=== PATIENT | male | born 1980 | race Caucasian/White ===

== ENCOUNTER 2016-07-26 11:35 | Emergency (ER) ==
[2016-07-26 11:43] VITALS: BP 117/83; TEMP 97.2; BMI 30.7
--- NOTE | 2016-07-26 11:56 | ED.PDOC ---
General ED Provider: Dr. BIANCA CHRIS JR Chief Complaint: Fever Stated Complaint: Fever 2 days ago. SOA, cough. States is blood-tinged. Pain rt chest. Worse with breathing. No fever now. Took ibuprofen. Robitussin last noc. [place] congestion, no decongestant taken.[End] 97.2 116 20 04% 117/83 03/01 Time Seen by Physician: 11:53 Mode of Arrival: Walk-In Information Source: Patient Exam Limitations: No limitations Primary Care Provider: ASPEN MARSHALL Nursing and Triage Documentation Reviewed and Agree: No Review of Systems - Review Of Systems Constitutional: Reports: Chills, Fever, Malaise Eyes: Reports: No symptoms Ears, Nose, Mouth, Throat: Reports: No symptoms Respiratory: Reports: Cough Cardiac: Reports: Chest pain (right pleuitic) GI: Reports: No symptoms : Reports: No symptoms Musculoskeletal: Reports: No symptoms Skin: Reports: No symptoms Neurological: Reports: No symptoms Endocrine: Reports: No symptoms Hematologic/Lymphatic: Reports: No symptoms All Other Systems: Other Past Medical History - Past Medical History Previously Healthy: Yes Endocrine: Reports: None Cardiovascular: Reports: None Respiratory: Reports: None Hematological: Reports: None Gastrointestinal: Reports: None Genitourinary: Reports: None Neuro/Psych: Reports: None Musculoskeletal: Reports: None Cancer: Reports: None - Surgical History General Surgical History: Reports: Appendectomy - Family History Family History: Reports: Unknown - Social History Smoking Status: Current every day smoker, Heavy tobacco smoker Hx Substance Use: No Alcohol Screening: None Physical Exam - Physical Exam Appearance: Ill-appearing Ill-appearing: Moderate Pain Distress: Moderate Eyes: NIRMAL, EOMI, Conjunctiva clear ENT: Ears normal Neck: Supple Respiratory: Airway patent, Crackles (right anterior) Cardiovascular: RRR, Pulses normal, No rub, No murmur GI/: Soft, Nontender, No masses, Bowel sounds normal, No Organomegaly Musculoskeletal: Normal strength, ROM intact, No edema, No calf tenderness Skin: Warm, Dry, Normal color Neurological: Sensation intact, Motor intact, Reflexes intact, Cranial nerves intact, Alert, Oriented Psychiatric: Affect appropriate, Mood appropriate Critical Care Note - Critical Care Note Total Time (mins): 0 Course - Course Orders, Labs, Meds: Orders Category Date Time Status SPUTUM CULTURE Stat LAB 07/26/16 11:58 Uncollected CHEST, 2 VIEWS PA & LAT Stat RADS 07/26/16 11:52 Completed Vital Signs: Temp Pulse Resp BP Pulse Ox 07/26/16 11:36 97.2 F L 116 H 20 117/83 94 L Departure - Departure Time of Disposition: 12:39 Disposition: HOME SELF-CARE Discharge Problem: Pneumonia Qualifiers: Pneumonia type: due to unspecified organism Laterality: right Lung location: lower lobe of lung Qualifier Code: (J18.1) Lobar pneumonia, unspecified organism Instructions: Pneumonia (ED) Condition: Stable Pt referred to PMD for follow-up: Yes Additional Instructions: call PMD tomorrow report condition antibiotic until gone return if fever over 101.0, if shortness of breath , if worsening Augmentin antibiotic until gone may use tussionex for cough may use [place] for pain (not with tussionex) may use combivent for breathing recommend stop smoking Prescriptions: Hydrocodone Bit/Acetaminophen [[place] 5-325] 1 - 2 tab PO Q6HR PRN #12 tablet PRN Reason: pain Amoxicillin/Potassium Clav [Augmentin 875-125 mg Tab] 1 tab PO BIDWM #14 tablet Hydrocodone/Chlorphen Polis [Tussionex] 5 ml PO Q12H PRN #120 ml PRN Reason: Cough Ipratropium/Albuterol Sulfate [Combivent Respimat Inhal [place]] 1 spray IH BID PRN #1 aero PRN Reason: Wheezing Allergies/Adverse Reactions: Allergies codeine Adverse Reaction (Verified 07/26/16 11:45) Home Medications: Ambulatory Orders Amoxicillin/Potassium Clav [Augmentin 875-125 mg Tab] 1 tab PO BIDWM #14 tablet 07/26/16 Hydrocodone Bit/Acetaminophen [[place] 5-325] 1 - 2 tab PO Q6HR PRN #12 tablet 11/06 Hydrocodone/Chlorphen Polis [Tussionex] 5 ml PO Q12H PRN #120 ml 07/26/16 Ipratropium/Albuterol Sulfate [Combivent Respimat Inhal [place]] 1 spray IH BID PRN #1 aero 07/26/16
--- NOTE | 2016-07-26 12:24 | DI ---
EXAM: CHEST FRONTAL AND LATERAL VIEWS HISTORY: Cough, hemoptysis. COMPARISON: None FINDINGS: Heart size is normal. There is a moderate amount of density in the posterior right lung base. Lungs are otherwise clear. Normal vascularity. No visible pleural fluid. IMPRESSION: Moderate amount of density over the right lung base which in a patient of this age would be most con sistent with pneumonia and unlikely to represent tumor. Atelectasis would be another consideration. Correlate clinically. Follow-up radiography is recommended.
== END 2016-07-26 13:00 | disposition home or self-care (01) ==
LOC: ED 11:35
DX: J18.1 Lobar pneumonia, unspecified organism (principal); F17.210 Nicotine dependence, cigarettes, uncomplicated
CPT/HCPCS: 87070; 99283

== ENCOUNTER 2016-07-30 20:02 | Inpatient (IN) ==
[2016-07-30] MEDS ORDERED: SODIUM CHLORIDE 1,000 ML IV STA (20:19)
[2016-07-30] MEDS ORDERED: DUONEB NEB STA (20:20)
[2016-07-30] MEDS ORDERED: ZOSYN 3.375 GM 3.375 GM in SODIUM CHLORIDE 100 ML IV STA (20:20)
[2016-07-30] MEDS ORDERED: TORADOL IVP STA (20:21)
[2016-07-30 20:40] LABS: BASOPHILS # (AUTO) 0.2 K/uL (0-0.2); BASOPHILS % (AUTO) 0.8 % (0.0-3.0); EOSINOPHILS # (AUTO) 0.2 K/ul (0.0-0.7); EOSINOPHILS % (AUTO) 0.7 % (0.0-7.0); HEMOGLOBIN 15.2 g/dl (14.0-18.0); IMMATURE GRANULOCYTE % (AUTO) 6.1 % (0.0-5.0); LYMPHOCYTES # (AUTO) 3.1 K/uL (0.60-3.4); LYMPHOCYTES % (AUTO) 13.6 (10.0-50.0); MEAN CORPUSCULAR HEMOGLOBIN 30.1 pg (27.0-31.0); MEAN CORPUSCULAR HGB CONC 35.3 (31.8-35.4); MEAN CORPUSCULAR VOLUME 85.1 fl (80.0-94.0); MONOCYTES # (AUTO) 2.3 K/uL (0.4-2.0); MONOCYTES % (AUTO) 10.4 (0-10); NEUTROPHILS # (AUTO) 15.5 K/ul (2.0-6.9); NEUTROPHILS % (AUTO) 68.4; PLATELET COUNT 350 10^3/uL (140-440); RED BLOOD COUNT 5.05 10^6/ul (4.70-6.10); WHITE BLOOD COUNT 22.59 K/ul (4.2-10.2)
--- NOTE | 2016-07-30 20:46 | CT ---
EXAM: CT scan thorax without contrast HISTORY: Cough COMPARISON: None. FINDINGS: Contiguous axial images obtained from thoracic inlet through hemidiaphragms without contr ast utilizing 5-mm collimation. Sagittal and coronal reconstructions were imaged and reviewed.. Th e thoracic inlet is unremarkable. There are subcentimeter pretracheal lymph nodes. Evaluation of h ilar structures is limited without contrast. The heart is normal in size with tiny pericardial effu pj measuring 9 mm.. There is mixed alveolar and interstitial infiltrate involving the entirety of the right lower lobe. There is no evidence of a pleural effusion. The left lung is clear. There are no lytic or blastic lesions. Adrenal glands are unremarkable. IMPRESSION: Large right lower lobe infiltrate compatible with pneumonia. Left lung is clear. Tiny pericardial effusion.
[2016-07-30 20:57] LABS: FLU INTERNAL QC INTERNAL QC VALID; RAPID FLU A NEGATIVE (NEGATIVE); RAPID FLU B NEGATIVE (NEGATIVE)
[2016-07-30 21:06] LABS: ALBUMIN 2.9 g/dL (3.4-5.0); ALBUMIN/GLOBULIN RATIO 0.66; BILIRUBIN,TOTAL 0.6 mg/dL (0.00-1.20); BUN/CREATININE RATIO 10.81; CALCIUM 9.6 mg/dL (8.2-10.2); CREATININE 0.74 mg/dL (0.60-1.10); TOTAL PROTEIN 7.3 g/dL (6.4-8.2)
[2016-07-30 21:06] LABS: ABG BASE EXCESS 1 (-2.0-2.0); ABG HCO3 24.9 (22.0-26.0); ABG PH 7.436 (7.35-7.45); ABG TCO2 26 (22.0-28.0)
--- NOTE | 2016-07-30 21:18 | ED.PDOC ---
General ED Provider: Dr. ASPEN MARSHALL-ER Chief Complaint: Respiratory Complaint Stated Complaint: i have pneumonia--im not getting better Time Seen by Physician: 20:15 Mode of Arrival: Walk-In Information Source: Patient Exam Limitations: No limitations Nursing and Triage Documentation Reviewed and Agree: Yes Respiratory Complaint Exam - Respiratory Complaint/Exam Onset/Duration: 2 days Symptoms Are: Still present Timing: Intermittent Initial Severity: Mild Current Severity: Moderate Location: Chest Character: Reports: Productive cough Aggravating: Reports: URI, Passive smoke exposure Alleviating: Reports: None Associated Signs and Symptoms: Reports: Dyspnea, Fever, Chills, URI, Nasal congestion. Denies: Rapid breathing, Chest pain, Pleuritic chest pain, Wheezing , Hemoptysis, Dizziness, Calf pain, Calf swelling, Edema, Hoarseness, Sinus discomfort, Vomiting, Sore throat, Weight loss, Decreased oral intake, Increased thirst, Increased appetite, Increased urination Related History: Reports: Similar episode History of Healthcare-Acquired Pneumonia: No Related Surgical History: Reports: None Pulmonary Embolism Risk Factors: Smoking Cardiac Risk Factors: Reports: Smoking Tuberculosis Risk Factors: Reports: None Status Asthmaticus Risk Factors: Reports: None Home Oxygen Use: No Recent Stress Test: No Recent Echo/LV Function: No Current Antibiotic Use: Yes Current Asthma Medication Use: No Respiratory Distress: Moderate Inadequate Respiratory Effort: No Dysphagia Present: No Stridor Present: No JVD Present: No Accessory Muscle Use: No Retractions: Not Present Diminished Breath Sounds: No Sinus Tenderness: None Grunting Respirations: No [place] Respirations: No Differential Diagnoses: Pneumonia Non-Traumatic Chest Pain Syncope: EKG Performed Review of Systems - Review Of Systems Constitutional: Reports: Chills, Fever, Weakness Eyes: Reports: No symptoms Ears, Nose, Mouth, Throat: Reports: No symptoms Respiratory: Reports: Cough Cardiac: Reports: No symptoms GI: Reports: No symptoms : Reports: No symptoms Musculoskeletal: Reports: No symptoms Skin: Reports: No symptoms Neurological: Reports: No symptoms Endocrine: Reports: No symptoms Hematologic/Lymphatic: Reports: No symptoms All Other Systems: Reviewed and Negative Past Medical History - Past Medical History Previously Healthy: Yes Endocrine: Reports: None Cardiovascular: Reports: None Respiratory: Reports: None Hematological: Reports: None Gastrointestinal: Reports: None Genitourinary: Reports: None Neuro/Psych: Reports: None Musculoskeletal: Reports: None Cancer: Reports: None - Surgical History General Surgical History: Reports: Appendectomy - Family History Family History: Reports: Unknown - Social History Smoking Status: Current every day smoker, Heavy tobacco smoker Hx Substance Use: No Alcohol Screening: None Lives: With family Physical Exam - Physical Exam Appearance: Well-appearing, No pain distress, Well-nourished Eyes: NIRMAL, EOMI, Conjunctiva clear ENT: Ears normal, Nose normal, Oropharynx normal Neck: Supple Respiratory: Crackles, Rhonchi Cardiovascular: RRR GI/: Soft, Nontender, No masses, Bowel sounds normal, No Organomegaly Musculoskeletal: Normal strength, ROM intact, No edema, No calf tenderness Skin: Warm, Dry, Normal color Neurological: Sensation intact, Motor intact, Reflexes intact, Cranial nerves intact, Alert, Oriented Psychiatric: Affect appropriate, Mood appropriate Interpretation - Radiology Interpretation Radiology Interpretation By: Radiologist Radiology Results: Positive Exam Interpreted: CT Scan - EKG Interpretation Time of EKG #1: 21:18 Rate: Normal Rhythm: Sinus Ectopy: None [place]: NL ST Segment: Normal Physician Notification - Case Discussed Physician Notified: dr hill Time of Notification: 21:18 Critical Care Note - Critical Care Note Total Time (mins): 0 Course - Course Hematology/Chemistry: 07/30/16 20:33 07/30/16 20:33 Orders, Labs, Meds: Lab Review 07/30/16 07/30/16 20:33 20:52 WBC 22.59 H RBC 5.05 Hgb 15.2 Hct 43.0 MCV 85.1 MCH 30.1 MCHC 35.3 RDW Coeff of [place]isabel 13.0 Plt Count 350 Immature Gran % (Auto) 6.1 H Neut % (Auto) 68.4 Lymph % (Auto) 13.6 [place] % (Auto) 10.4 H Eos % (Auto) 0.7 Baso % (Auto) 0.8 Immature Gran # (Auto) 1.4 H Neut # 15.5 H Lymph # 3.1 [place] # 2.3 H Eos # 0.2 Baso # 0.2 D-Dimer 1.32 Puncture Site Lb O2 Saturation 94.0 L ABG pH 7.436 ABG pCO2 37.0 ABG pO2 68.0 L ABG HCO3 24.9 ABG Total CO2 26 ABG Base Excess 1 Steven Test + FiO2 % 21.0 Sodium 139 Potassium 4.0 Chloride 101 Carbon Dioxide 26 Anion Gap 16.0 BUN 8 Creatinine 0.74 Estimated GFR (MDRD) 121.00 BUN/Creatinine Ratio 10.81 Glucose 118 H Calcium 9.6 Total Bilirubin 0.60 AST 35 ALT 44 Alkaline Phosphatase 156 H Total Protein 7.3 Albumin 2.9 L Globulin 4.4 Albumin/Globulin Ratio 0.66 Influenza A (Rapid) Negative Influenza B (Rapid) Negative Orders Category Date Time Status ABG DRAW REQUEST Stat CARDIO 07/30/16 20:53 Completed EKG-(ED ONLY) Stat CARDIO 07/30/16 20:19 Completed NEBULIZER TREATMENT Stat CARDIO 07/30/16 20:21 Completed IV [ED IV/MEDIPORT/POWERPORT] .ONCE EMERGENCY 07/30/16 20:19 Active OXYGEN [ED APPLY O2] .ONCE EMERGENCY 07/30/16 21:09 Active ARTERIAL BLOOD GAS [ABG] Stat LAB 07/30/16 20:52 Completed BLOOD CULTURE Stat LAB 07/30/16 20:33 Received CBC W/ AUTO DIFF Stat LAB 07/30/16 20:33 Completed COMPREHENSIVE METABOLIC PANEL Stat LAB 07/30/16 20:33 Completed CREATINE KINASE Stat LAB 07/30/16 20:33 Received D-DIMER Stat LAB 07/30/16 20:33 Completed RAPID FLU A/B Stat LAB 07/30/16 20:33 Completed TROPONIN I Stat LAB 07/30/16 20:33 Received 0.9 % Sodium Chloride [Saline Flush] MEDS 07/30/16 20:19 Ordered 1 syr IVF PRN PRN Ipratropium/Albuterol Neb [Duoneb] MEDS 07/30/16 20:20 Discontinued 1 vial NEB ONCE STA Ketorolac Tromethamine [Toradol] MEDS 07/30/16 20:21 Discontinued 30 mg IVP ONCE STA Piperacillin Sodium/Tazobactam [Zosyn 3.375 gm] 3.375 MEDS 07/30/16 20:20 Active gm 0.9 % Sodium Chloride [Sodium Chloride] 100 ml IV ONCE Sodium Chloride 0.9% [Sodium Chloride] 1,000 ml MEDS 07/30/16 20:19 Active IV 100 mls/hr CT CHEST W/O CONTRAST Stat RADS 07/30/16 20:20 Completed Medications Generic Name Dose Route Start Last Admin Trade Name Freq PRN Reason Stop Dose Admin Sodium Chloride 1,000 mls @ 100 mls/hr 07/30/16 20:19 07/30/16 21:03 Sodium Chloride IV 07/31/16 06:18 100 mls/hr .Q10H STA Administration Piperacillin Sod/Tazobactam 100 mls @ 100 mls/hr 07/30/16 20:20 07/30/16 21: 03 Sod 3.375 gm/ Sodium Chloride IV 07/30/16 21:19 100 mls/hr ONCE STA Administration Sodium Chloride 1 syr 07/30/16 20:19 07/30/16 21:05 Saline Flush IVF 1 syr PRN PRN Administration To flush IV Discontinued Medications Generic Name Dose Route Start Last Admin Trade Name Freq PRN Reason Stop Dose Admin Albuterol/Ipratropium 1 vial 07/30/16 20:20 07/30/16 20:49 Duoneb NEB 07/30/16 20:21 1 vial ONCE STA Administration Ketorolac Tromethamine 30 mg 07/30/16 20:21 07/30/16 21:01 Toradol IVP 07/30/16 20:22 30 mg ONCE STA Administration Vital Signs: Temp Pulse Resp BP Pulse Ox 07/30/16 20:11 99.0 F 108 H 20 147/97 H 93 L Departure - Departure Time of Disposition: 21:19 Disposition: ADMITTED INPATIENT Discharge Problem: Pneumonia Qualifiers: Pneumonia type: due to unspecified organism Laterality: right Lung location: lower lobe of lung Qualifier Code: (J18.1) Lobar pneumonia, unspecified organism Instructions: Bacterial Pneumonia (ED) Condition: Good Pt referred to PMD for follow-up: Yes Allergies/Adverse Reactions: Allergies codeine Adverse Reaction (Verified 07/30/16 20:14) Home Medications: Ambulatory Orders Amoxicillin/Potassium Clav [Augmentin 875-125 mg Tab] 1 tab PO BIDWM #14 tablet 07/26/16 Hydrocodone Bit/Acetaminophen [[place] 5-325] 1 - 2 tab PO Q6HR PRN #12 tablet 11/06 Hydrocodone/Chlorphen Polis [Tussionex] 5 ml PO Q12H PRN #120 ml 07/26/16 Ipratropium/Albuterol Sulfate [Combivent Respimat Inhal [place]] 1 spray IH BID PRN #1 aero 07/26/16 Disposition Discussed With: Patient
[2016-07-30] MEDS ORDERED: MOTRIN PO PRN (21:22)
[2016-07-30] MEDS ORDERED: TUSSIONEX PO PRN (21:23)
[2016-07-30 21:28] LABS: CREATINE KINASE 39 U/L
[2016-07-30] MEDS: SODIUM CHLORIDE 1,000 ML IV SCH (21:55)
[2016-07-30 22:30] VITALS: BMI 29.5
[2016-07-30] MEDS: DUONEB NEB SCH (23:50)
[2016-07-31] MEDS: ZOSYN 3.375 GM 3.375 GM in SODIUM CHLORIDE 100 ML IV SCH ×5 (00:22→23:40)
[2016-07-31] MEDS: DUONEB NEB SCH ×4 (05:19→23:16)
[2016-07-31 08:05] LABS: BASOPHILS # (AUTO) 0.1 K/uL (0-0.2); BASOPHILS % (AUTO) 0.4 % (0.0-3.0); EOSINOPHILS # (AUTO) 0.2 K/ul (0.0-0.7); EOSINOPHILS % (AUTO) 1.5 % (0.0-7.0); HEMOGLOBIN 13.4 g/dl (14.0-18.0); IMMATURE GRANULOCYTE % (AUTO) 7.1 % (0.0-5.0); LYMPHOCYTES % (AUTO) 19.3 (10.0-50.0); MEAN CORPUSCULAR HGB CONC 34.4 (31.8-35.4); MEAN CORPUSCULAR VOLUME 87.2 fl (80.0-94.0); MONOCYTES # (AUTO) 1.9 K/uL (0.4-2.0); MONOCYTES % (AUTO) 11.8 (0-10); NEUTROPHILS # (AUTO) 9.4 K/ul (2.0-6.9); NEUTROPHILS % (AUTO) 59.9; PLATELET COUNT 296 10^3/uL (140-440); RED BLOOD COUNT 4.47 10^6/ul (4.70-6.10); WHITE BLOOD COUNT 15.73 K/ul (4.2-10.2)
[2016-07-31 08:15] LABS: ALBUMIN 2.4 g/dL (3.4-5.0); ALBUMIN/GLOBULIN RATIO 0.6; ANION GAP 12.7; BILIRUBIN,TOTAL 0.43 mg/dL (0.00-1.20); BUN/CREATININE RATIO 10.12; CALCIUM 8.8 mg/dL (8.2-10.2); CREATININE 0.79 mg/dL (0.60-1.10); POTASSIUM 3.7 mmol/L (3.5-5.1); TOTAL PROTEIN 6.4 g/dL (6.4-8.2)
[2016-07-31] MEDS: LEVAQUIN 750 MG in PREMIX 150 ML D5W 1 BAG IV SCH (08:20)
[2016-07-31] MEDS: LOVENOX SUBCUT SCH (08:21)
[2016-07-31] MEDS: SODIUM CHLORIDE 1,000 ML IV SCH (15:38)
[2016-07-31] MEDS: ATIVAN PO PRN (21:57)
[2016-08-01] MEDS: DUONEB NEB SCH ×4 (05:00→22:48)
[2016-08-01] MEDS: ZOSYN 3.375 GM 3.375 GM in SODIUM CHLORIDE 100 ML IV SCH ×4 (05:34→23:54)
[2016-08-01 07:51] LABS: BASOPHILS # (AUTO) 0.1 K/uL (0-0.2); BASOPHILS % (AUTO) 0.6 % (0.0-3.0); EOSINOPHILS # (AUTO) 0.3 K/ul (0.0-0.7); EOSINOPHILS % (AUTO) 1.6 % (0.0-7.0); HEMATOCRIT 38.8 % (42.0-52.0); HEMOGLOBIN 13.4 g/dl (14.0-18.0); IMMATURE GRANULOCYTE % (AUTO) 8.8 % (0.0-5.0); LYMPHOCYTES # (AUTO) 3.1 K/uL (0.60-3.4); LYMPHOCYTES % (AUTO) 19.7 (10.0-50.0); MEAN CORPUSCULAR HEMOGLOBIN 30.4 pg (27.0-31.0); MEAN CORPUSCULAR HGB CONC 34.5 (31.8-35.4); MONOCYTES # (AUTO) 1.1 K/uL (0.4-2.0); MONOCYTES % (AUTO) 6.8 (0-10); NEUTROPHILS # (AUTO) 9.9 K/ul (2.0-6.9); NEUTROPHILS % (AUTO) 62.5; PLATELET COUNT 324 10^3/uL (140-440); RED BLOOD COUNT 4.41 10^6/ul (4.70-6.10); WHITE BLOOD COUNT 15.87 K/ul (4.2-10.2)
[2016-08-01 08:10] LABS: ALBUMIN 2.4 g/dL (3.4-5.0); ALBUMIN/GLOBULIN RATIO 0.57; ANION GAP 13.2; BILIRUBIN,TOTAL 0.35 mg/dL (0.00-1.20); BUN/CREATININE RATIO 9.09; CALCIUM 9.1 mg/dL (8.2-10.2); CREATININE 0.77 mg/dL (0.60-1.10); POTASSIUM 4.2 mmol/L (3.5-5.1); TOTAL PROTEIN 6.6 g/dL (6.4-8.2)
[2016-08-01] MEDS: LEVAQUIN 750 MG in PREMIX 150 ML D5W 1 BAG IV SCH (09:05)
[2016-08-01] MEDS: LOVENOX SUBCUT SCH (09:11)
[2016-08-01] MEDS: SODIUM CHLORIDE 1,000 ML IV SCH (14:46)
[2016-08-01] MEDS: ATIVAN PO PRN (20:24)
[2016-08-02] MEDS: DUONEB NEB SCH ×4 (04:46→23:46)
[2016-08-02] MEDS: SODIUM CHLORIDE 1,000 ML IV SCH ×2 (05:17→21:25)
[2016-08-02 05:20] LABS: BASOPHILS # (AUTO) 0.1 K/uL (0-0.2); BASOPHILS % (AUTO) 0.3 % (0.0-3.0); EOSINOPHILS # (AUTO) 0.4 K/ul (0.0-0.7); EOSINOPHILS % (AUTO) 1.9 % (0.0-7.0); HEMATOCRIT 39.6 % (42.0-52.0); HEMOGLOBIN 13.4 g/dl (14.0-18.0); IMMATURE GRANULOCYTE % (AUTO) 4.7 % (0.0-5.0); LYMPHOCYTES # (AUTO) 3.7 K/uL (0.60-3.4); LYMPHOCYTES % (AUTO) 17.3 (10.0-50.0); MEAN CORPUSCULAR HEMOGLOBIN 29.8 pg (27.0-31.0); MEAN CORPUSCULAR HGB CONC 33.8 (31.8-35.4); MEAN CORPUSCULAR VOLUME 88.2 fl (80.0-94.0); MONOCYTES # (AUTO) 1.1 K/uL (0.4-2.0); MONOCYTES % (AUTO) 5.1 (0-10); NEUTROPHILS # (AUTO) 15.1 K/ul (2.0-6.9); NEUTROPHILS % (AUTO) 70.7; PLATELET COUNT 399 10^3/uL (140-440); RED BLOOD COUNT 4.49 10^6/ul (4.70-6.10)
[2016-08-02] MEDS: ZOSYN 3.375 GM 3.375 GM in SODIUM CHLORIDE 100 ML IV SCH ×4 (05:38→23:37)
[2016-08-02 05:39] LABS: ALBUMIN 2.5 g/dL (3.4-5.0); ALBUMIN/GLOBULIN RATIO 0.63; ANION GAP 12.9; BILIRUBIN,TOTAL 0.33 mg/dL (0.00-1.20); BUN/CREATININE RATIO 9.45; CALCIUM 9.1 mg/dL (8.2-10.2); CREATININE 0.74 mg/dL (0.60-1.10); POTASSIUM 3.9 mmol/L (3.5-5.1); TOTAL PROTEIN 6.5 g/dL (6.4-8.2)
[2016-08-02] MEDS: ROCEPHIN 1 GM in SODIUM CHLORIDE 100 ML IV SCH (10:12)
--- NOTE | 2016-08-02 10:25 | PCM.PROG ---
Attending Provider: ATTENDING PROVIDER: Dr. ROSY CHOW DATE OF SERVICE: 08/02/16 SUBJECTIVE: This 36 year old WHITE/ M was hospitalized 07/30/16. The patient is admitted with pneumonia. He is coughing, which is nonproductive. He has no fever. The patient states his chest hurts when he coughs, probably pleuritic in nature. Will repeat chest x-ray. REVIEW OF SYSTEMS: CONSTITUTIONAL: No fever, no chills. ENDOCRINE: No weight loss or weight gain. HEENT: No sinus drainage, no sore throat. CVS: Chest pain, pleuritic. No angina symptoms. No CHF symptoms. No palpitations. No shortness of breath. RESPIRATORY: Cough and congestion. No hemoptysis. GI: No melena. No abdominal pain. No nausea, no vomiting. : No hematuria. No polyuria. SKIN: No rash. No wounds. MUSCULOSKELETAL: No pain. SERVICE RIG OPERATOR: No blackout, no dizziness. No headache. No double vision. PSYCHIATRIC: Not anxious; no depression. No suicidal thoughts. No homicidal thoughts. PHYSICAL EXAMINATION: GENERAL: Lying in bed in no distress. VITAL SIGNS: Temperature 97.0 F, Pulse 89, Respiratory Rate 18, BP 135/86, Pulse Ox 97% HEENT: Normocephalic, atraumatic. Mucosa is dry, pallor positive. NECK: No JVP, no carotid bruit. No lymphadenopathy. CARDIAC: S1, S2, no S3. No murmur, gallop or regurgitation. LUNGS: Decreased air entry with diffuse basilar crackles on the right. ABDOMEN: Soft, non-tender. Bowel sounds active. No rigidity, guarding or CVA tenderness. EXTREMITIES: No clubbing, cyanosis or edema. NEUROLOGIC: Awake, alert and oriented x3. LYMPHATIC: No palpable lymph nodes SKIN: Not dry. Intact. MUSCULOSKELETAL: No joint swelling. LAB REVIEW: 08/02/16 05:05 08/02/16 05:05 08/02/16 05:05: WBC 21.30 H D, RBC 4.49 L, Hgb 13.4 L, Hct 39.6 L, MCV 88.2, MCH 29.8, MCHC 33.8, RDW Coeff of Marisabel 13.2, Plt Count 399, Immature Gran % (Auto ) 4.7, Neut % (Auto) 70.7, Lymph % (Auto) 17.3, [place] % (Auto) 5.1, Eos % (Auto) 1.9, Baso % (Auto) 0.3, Immature Gran # (Auto) 1.0, Neut # 15.1 H, Lymph # 3.7 H , [place] # 1.1, Eos # 0.4, Baso # 0.1, Sodium 141, Potassium 3.9, Chloride 104, Carbon Dioxide 28, Anion Gap 12.9, BUN 7, Creatinine 0.74, Estimated GFR (MDRD) 121.00, BUN/Creatinine Ratio 9.45, Glucose 108 H, Calcium 9.1, Total Bilirubin 0.33, AST 44 H, ALT 53, Alkaline Phosphatase 142 H, Total Protein 6.5, Albumin 2.5 L, Globulin 4.0, Albumin/Globulin Ratio 0.63 ASSESSMENT: 1. Right lower lobe pneumonia, community acquired. 2. Pleurisy. 3. Leukocytosis secondary to pneumonia. PLAN: 1. Continue Duonebs 2. Discontinue Levaquin 3. Begin Rocephin 1 gm 4. Chest x-ray, repeat Plan and coordination of the patient's care discussed in the presence of Mentally Retarded Teacher and nurse. CONDITION: Stable SCRIBED BY: ASHLY TOM, Accounts Receivable Clerk scribed while in presence of service performed by Dr. ROSY CHOW on 08/02/16 ([id number])
--- NOTE | 2016-08-02 10:57 | DI ---
EXAM: Chest two view, frontal and lateral views. HISTORY: Pneumonia follow-up. Left-sided crackles. COMPARISON: 07/30/2016. FINDINGS: Heart size is normal. No vascular congestion identified. Right lower lobe consolidation is unchanged. Left lung is clear. No pleural effusion or pneumothorax identified. Osseous struct ures are intact. IMPRESSION: Stable right lower lobe pneumonia.
[2016-08-02] MEDS: LOVENOX SUBCUT SCH (11:37)
[2016-08-02] MEDS: LEVAQUIN 750 MG in PREMIX 150 ML D5W 1 BAG IV SCH (11:38)
--- NOTE | 2016-08-02 15:15 | PN ---
DATE OF SERVICE: 07/30/16 SUBJECTIVE: The patient was admitted with the right sided pneumonia. He is feeling some better but still coughing and not able to get any phlegm. No fever. Still has the right sided chest pain when he takes a deep breath. Otherwise no other complaints. REVIEW OF SYSTEMS: CONSTITUTIONAL: No fever, no chills. HEENT: Normal. ENDOCRINE: No weight gain, no weight loss. CVS: No angina symptoms. No CHF symptoms. No palpitations. No atypical chest pain for CAD. No shortness of breath. No PND, no orthopnea. RESPIRATORY: No cough, no hemoptysis. GI: No nausea, no vomiting. No abdominal pain. : No hematuria. No polyuria. MUSCULOSKELETAL:. No joint swelling. PSYCHIATRIC: Not anxious. No depression. No suicidal thoughts. No homicidal thoughts. SKIN: Intact. No rash. PHYSICAL EXAMINATION: V/S: Blood pressure 137/88, respiratory rate 18, heart rate 93, temperature 97.0 and saturation 98% on the 2 liter. HEENT: Normocephalic, atraumatic. Ears, eyes, nose and throat normal. Mucosa dry. Pallor positive. No icterus. NECK: Supple. No JVD, no carotid bruit. No lymphadenopathy. LUNGS: Right sided lung entry is decreased and crackles defused but present. No rales or rhonchi. HEART: S1, S2 normal. No S3. No murmur, gallop or regurgitation. ABDOMEN: Soft, nontender. Bowel sounds active. No rigidity. No rebound or guarding. No CVA tenderness. EXTREMITIES: No clubbing, cyanosis or pedal edema. MUSCULOSKELETAL: No joint swelling. NEUROLOGIC: Awake, alert, oriented times three. No focal deficit. LYMPHATIC: No lymph nodes palpable. SKIN: Intact. LABS: WBC 15.87, hgb 13.4, hct 38.8, plt count 324, sodium 142, potassium 4.2, chloride 105, bicarb 28, BUN 7 and creatinine 0.77. ASSESSMENT: 1. Right sided acute community acquired pneumonia 2. Pleurisy 3. Anemia probably hemodilution 4. Leukocytosis PLAN: 1. Continue Levaquin, Piperacillin and DUO NEBS 2. Lovenox for the DVT prophylaxis 3. Hydrocodone for the pain 4. Out of bed to chair activity as tolerated TIME SPENT: More than 30 minutes MTDD
--- NOTE | 2016-08-02 15:23 | PN ---
DATE OF SERVICE: 08/01/16 SUBJECTIVE: The patient was admitted with the pneumonia, community acquired right sided. He is feeling some better, still coughing and not able to get any phlegm. No fever or chills. Some shortness of breath. Still hurting on the right side of chest. REVIEW OF SYSTEMS: CONSTITUTIONAL: No fever, no chills. HEENT: Normal. ENDOCRINE: No weight gain, no weight loss. CVS: No angina symptoms. No CHF symptoms. No palpitations. No atypical chest pain for CAD. No shortness of breath. No PND, no orthopnea. RESPIRATORY: No cough, no hemoptysis. GI: No nausea, no vomiting. No abdominal pain. : No hematuria. No polyuria. MUSCULOSKELETAL:. No joint swelling. PSYCHIATRIC: Not anxious. No depression. No suicidal thoughts. No homicidal thoughts. SKIN: Intact. No rash. PHYSICAL EXAMINATION: V/S: Blood pressure 152/97, respiratory rate 18, heart rate 89, temperature 97.5 and saturation 95% on the room air. HEENT: Normocephalic, atraumatic. Ears, eyes, nose and throat normal. Mucosa dry. Pallor positive. No icterus. NECK: Supple. No JVD, no carotid bruit. No lymphadenopathy. LUNGS: Decreased crackles diffusely present on the right side and decreased entry on the right side. No rales or rhonchi. HEART: S1, S2 normal. No S3. No murmur, gallop or regurgitation. ABDOMEN: Soft, nontender. Bowel sounds active. No rigidity. No rebound or guarding. No CVA tenderness. EXTREMITIES: No clubbing, cyanosis or pedal edema. MUSCULOSKELETAL: No joint swelling. NEUROLOGIC: Awake, alert, oriented times three. No focal deficit. LYMPHATIC: No lymph nodes palpable. SKIN: Intact. LABS: WBC 15.73, hgb 13.4, hct 39.0, plt count 296, sodium 141, potassium 3.7, chloride 103, bicarb 29, BUN 8, creatinine 0.79 and glucose 120. ASSESSMENT: 1. Right sided community acquired pneumonia 2. Pleurisy 3. Leukocytosis 4. Anemia, most likely from the hemodilution PLAN: 1. Continue the Levaquin 2. Piperacillin 3. DUO NEBS 4. [place] for the pain 5. IV fluids 6. Out of bed to chair activity as tolerated 7. Lovenox for the DVT prophylaxis. TIME SPENT: More than 30 minutes MTDD
--- NOTE | 2016-08-02 15:57 | HP ---
DATE OF SERVICE: 07/30/16 REASON FOR HOSPITALIZATION: Coughing HISTORY OF PRESENT ILLNESS: The patient is a 36 year old male was recently seen in the emergency room by Dr. Samson on the July 26, 2016 and it was showing the right sided pneumonia. Dr. Samson gave the patient some antibiotics and to follow up with the PMD but his cough, congestion and fever was getting worse came to the emergency room and was seen by Dr. Hugo. In the emergency room his temperature was 99.0. Dr. Hugo did the CT of the chest which showed the large right lower lobe infiltrate compatible with the pneumonia, left lung is clear. Tiny pericardial effusion. At that time the patient is admitted to the hospital for the IV antibiotics and breathing treatments. The patient is still having cough, congestion with yellow/green phlegm and right sided chest pain that hurts to breath. REVIEW OF SYSTEMS: CONSTITUTIONAL: No night sweats. Weakness and tiredness. Fever or chills. HEENT: Eyes: No visual changes. No eye pain. No eye discharge. ENT: No runny nose. No epistaxis. No sinus pain. No sore throat. No odynophagia. No ear pain. No congestion. RESPIRATORY: Cough and congestion. No hemoptysis. CARDIOVASCULAR: No angina symptoms. No CHF symptoms. No atypical chest pain for CAD. No palpitations. No shortness of breath. Right sided chest pain, hurts to breath on the right side. GASTROINTESTINAL: No abdominal pain. No nausea or vomiting. No diarrhea or constipation. No hematemesis. No hematochezia. GENITOURINARY: No urgency. No frequency. No dysuria. No hematuria. No obstructive symptoms. No discharge. No pain. No significant abnormal bleeding. MUSCULOSKELETAL: No musculoskeletal pain. No joint swelling. No arthritis. NEUROLOGICAL: No headache. No neck pain. No syncope. No seizures. No dizziness. PSYCHIATRIC: Not anxious. No depression. No suicidal thoughts. No homicidal thoughts. SKIN: No rash. No lesions. No wounds. ENDOCRINE: No unexplained weight loss. No weight gain. HEMATOLOGIC/LYMPHATIC: No anemia. No purpura. No petechiae. No prolonged or excessive bleeding. No palpable lymph nodes. PERSONAL/FAMILY/SOCIAL HISTORY: The patient smokes. Family history is significant for the lung cancer and the GA. PAST MEDICAL/SURGICAL PROBLEMS: No active of medication problems History of substance use, occasional pot. Appendectomy MEDICATIONS: Antibiotics Cough syrup Pain Medication All from emergency room otherwise no home medications. ALLERGIES: Codeine PHYSICAL EXAMINATION: VITAL SIGNS: Blood pressure 147/97, respiratory rate 20, heart rate 108, temperature 99.0 and saturation is 93 on the room air. GENERAL: Sick looking person sitting in the bed not in any distress, in mild discomfort. HEENT: Head normocephalic, atraumatic. Eyes: Extraocular muscles are intact. Pupils are equal, round and reactive to light and accommodation. Ears: No lesions. Nose appeared normal. Throat: No exudate or erythema. Mucosa dry. NECK: Supple. No JVD, no carotid bruit. No lymphadenopathy or thyromegaly. LUNGS: Decreased right sided crackles diffusely present on the right side lung. Percussion note normal. Chest symmetrical. HEART: S1, S2, no S3. No murmurs. No cyanosis or clubbing. No ascites. Pulses: Dorsalis pedis and posterior tibial pulses +1 to +2 both sides. ABDOMEN: Soft. Nontender. Bowel sounds active. No CVA tenderness. No mass felt. EXTREMITIES: No edema. Full range of motion of all extremities, equal. NEUROLOGIC: No focal deficit. Cranial nerves II through XII are grossly intact. No headache, no double vision or headache. SKIN: Not dry. Intact. Turgor - normal. LYMPHATIC: No palpable lymph nodes/no lymphedema. MUSCULOSKELETAL: Normal joints with no swelling. Muscle tone is normal. LABS: WBC 22.59, hgb 15.2, hct 43.0, plt count 350, D-dimer 1.32, ABG pH 7.43, pCO2 37 , pO2 68, Sodium 139, potassium 4.0, chloride 101, Bicarb 26, BUN 8, creatinine 0.74 and glucose 180 and alkaline phosphatase is 156. CAT scan of the chest showing the right lung pneumonia. ASSESSMENT: 1. Right sided lung pneumonia, community acquired 2. Pleurisy 3. Leukocytosis from the pneumonia PLAN: 1. Admit patient to the regular floor 2. CBC and CMP today and daily 3. Cardiac enzymes and Troponin 4. IV fluids 5. DUO NEBS 6. Hydrocodone 8. Lovenox 9. Levaquin 10.Piperacillin Will follow the patient in daily rounds. TIME SPENT: More than 60 minutes. [facility]ITALMoj[facility]
[2016-08-03 05:08] LABS: BASOPHILS # (AUTO) 0.1 K/uL (0-0.2); BASOPHILS % (AUTO) 0.3 % (0.0-3.0); EOSINOPHILS # (AUTO) 0.4 K/ul (0.0-0.7); EOSINOPHILS % (AUTO) 2.3 % (0.0-7.0); HEMATOCRIT 38.6 % (42.0-52.0); HEMOGLOBIN 12.9 g/dl (14.0-18.0); IMMATURE GRANULOCYTE % (AUTO) 2.5 % (0.0-5.0); LYMPHOCYTES % (AUTO) 20.9 (10.0-50.0); MEAN CORPUSCULAR HEMOGLOBIN 29.9 pg (27.0-31.0); MEAN CORPUSCULAR HGB CONC 33.4 (31.8-35.4); MEAN CORPUSCULAR VOLUME 89.4 fl (80.0-94.0); MONOCYTES # (AUTO) 0.8 K/uL (0.4-2.0); MONOCYTES % (AUTO) 3.9 (0-10); NEUTROPHILS # (AUTO) 13.5 K/ul (2.0-6.9); NEUTROPHILS % (AUTO) 70.1; PLATELET COUNT 425 10^3/uL (140-440); RED BLOOD COUNT 4.32 10^6/ul (4.70-6.10); WHITE BLOOD COUNT 19.22 K/ul (4.2-10.2)
[2016-08-03 05:30] LABS: ALBUMIN 2.5 g/dL (3.4-5.0); ALBUMIN/GLOBULIN RATIO 0.6; ANION GAP 13.3; BILIRUBIN,TOTAL 0.38 mg/dL (0.00-1.20); BUN/CREATININE RATIO 7.59; CALCIUM 9.1 mg/dL (8.2-10.2); CREATININE 0.79 mg/dL (0.60-1.10); POTASSIUM 4.3 mmol/L (3.5-5.1); TOTAL PROTEIN 6.7 g/dL (6.4-8.2)
[2016-08-03] MEDS: DUONEB NEB SCH (05:38)
[2016-08-03] MEDS: ZOSYN 3.375 GM 3.375 GM in SODIUM CHLORIDE 100 ML IV SCH (05:42)
[2016-08-03 05:44] VITALS: BP 129/78; TEMP 97.2
[2016-08-03] MEDS: SODIUM CHLORIDE 1,000 ML IV SCH ×2 (06:33→06:34)
[2016-08-03] MEDS ORDERED: PREDNISONE PO SCH (09:00)
[2016-08-03] MEDS: LOVENOX SUBCUT SCH (09:21)
[2016-08-03] MEDS: ROCEPHIN 1 GM in SODIUM CHLORIDE 100 ML IV SCH (09:22)
--- NOTE | 2016-08-03 13:14 | PCM.PROG ---
Attending Provider: ATTENDING PROVIDER: Dr. ROSY CHOW DATE OF SERVICE: 08/03/16 SUBJECTIVE: This 36 year old WHITE/ M was hospitalized 07/30/16. The patient is still coughing, is mostly nonproductive. He states he is tired. The pain on the right side better. X-ray from yesterday still shows right lower lobe pneumonia, failed outpatient treatment. REVIEW OF SYSTEMS: CONSTITUTIONAL: No fever, no chills. Tiredness. ENDOCRINE: No weight loss or weight gain. HEENT: No sinus drainage, no sore throat. CVS: No angina symptoms. No CHF symptoms. No palpitations. No atypical chest pain for CAD. No shortness of breath. RESPIRATORY: Cough; no hemoptysis. GI: No melena. No abdominal pain. No nausea, no vomiting. : No hematuria. No polyuria. SKIN: No rash. No wounds. MUSCULOSKELETAL: No arthritic pain. JAVA DEVELOPMENT MANAGER: No blackout, no dizziness. No headache. No double vision. PSYCHIATRIC: Not anxious; no depression. No suicidal thoughts. No homicidal thoughts. PHYSICAL EXAMINATION: GENERAL: Lying in bed in no distress. VITAL SIGNS: Temperature 97.2 F, Pulse 95, Respiratory Rate 20, BP 129/78, Pulse Ox 94% HEENT: Normocephalic, atraumatic. Mucosa is dry, pallor positive. NECK: No JVP, no carotid bruit. No lymphadenopathy. CARDIAC: S1, S2, no S3. No murmur, gallop or regurgitation. LUNGS: Decreased entry. Clear to auscultation. ABDOMEN: Soft, non-tender. Bowel sounds active. No rigidity, guarding or CVA tenderness. EXTREMITIES: No clubbing, cyanosis or edema. NEUROLOGIC: Awake, alert and oriented x3. LYMPHATIC: No palpable lymph nodes SKIN: Not dry. Intact. MUSCULOSKELETAL: No joint swelling. LAB REVIEW: 08/03/16 05:00 08/03/16 05:00 08/03/16 05:00: WBC 19.22 H, RBC 4.32 L, Hgb 12.9 L, Hct 38.6 L, MCV 89.4, MCH 29.9, MCHC 33.4, RDW Coeff of Marisabel 13.3, Plt Count 425, Immature Gran % (Auto) 2.5, Neut % (Auto) 70.1, Lymph % (Auto) 20.9, [facility] % (Auto) 3.9, Eos % (Auto) 2.3, Baso % (Auto) 0.3, Immature Gran # (Auto) 0.5, Neut # 13.5 H, Lymph # 4.0 H , [facility] # 0.8, Eos # 0.4, Baso # 0.1, Sodium 142, Potassium 4.3, Chloride 104, Carbon Dioxide 29, Anion Gap 13.3, BUN 6 L, Creatinine 0.79, Estimated GFR (MDRD ) 112.00, BUN/Creatinine Ratio 7.59, Glucose 132 H, Calcium 9.1, Total Bilirubin 0.38, AST 45 H, ALT 54, Alkaline Phosphatase 142 H, Total Protein 6.7 , Albumin 2.5 L, Globulin 4.2, Albumin/Globulin Ratio 0.60 ASSESSMENT: 1. Right lower lobe pneumonia, community acquired. 2. Pleurisy. 3. Leukocytosis secondary to pneumonia. PLAN: 1. Continue Rocephin 2. Continue Piperacillin 3. Continue Duonebs 4. Prednisone 10 mg twice a day 5. Out of bed to chair - activity as tolerates 6. Decreased entry with right basilar crackles Plan and coordination of the patient's care discussed in the presence of Oil Burner Technician and nurse. CONDITION: Stable SCRIBED BY: ASHLY TOM, Motor Room Controller scribed while in presence of service performed by Dr. ROSY CHOW on 08/03/16 ([id number])
--- NOTE | 2016-08-12 15:43 | AMA ---
HISTORY: The patient is a 36 year old male who was admitted with the right lower lobe pneumonia and he was a failure of therapy as outpatient. Repeat chest x-ray was done on the 02 of August which still showed the pneumonia. At that time the patient was suggested to have a continued hospitalization. After the rounds on the the patient decided that he has to leave. Ritu, nurse, tried to keep him and explained that pneumonia can get worse and may end up with respiratory failure. He did not listen he just left hospital and we did inform the patient that in case things worse that he can always come back. RODDYD
== END 2016-08-03 11:02 | disposition left against medical advice (07) | DRG 194 ==
LOC: ED 20:02 → MEDSURG B 21:28
PROVIDERS: ADMIT Emergency Medicine; ATTEND Emergency Medicine
DX: J18.1 Lobar pneumonia, unspecified organism (principal); I31.3 Pericardial effusion (noninflammatory); D64.9 Anemia, unspecified; D72.829 Elevated white blood cell count, unspecified; F17.200 Nicotine dependence, unspecified, uncomplicated; Z79.2 Long term (current) use of antibiotics
CPT/HCPCS: 36415; 80053; 82550; 82803; 84484; 85025; 85379; 87040; 87804; 93005; 93010; 94640; 96365; 96375; 99223; 99233; 99284